=== PATIENT | female | born 2000 | race African-American/Black ===

== ENCOUNTER 2022-12-04 07:41 | Emergency (ER) | payer MEDICAID ==
[~2022-12-04] VITALS: Ht 152.4 cm; Wt 56.0 kg
[2022-12-04 07:44] VITALS: BP 126/89; PULSE 87; RESP 20; TEMP 98.8; O2SAT 99
== END 2022-12-04 12:18 | disposition left against medical advice (07) ==
LOC: ER 07:49
DX: R10.9 Unspecified abdominal pain (principal)
CPT/HCPCS: 99281